=== PATIENT | male | born 1995 | race Two or more races ===

== ENCOUNTER 2017-07-14 15:16 | Emergency (ER) | payer SELFPAY ==
[~2017-07-14] VITALS: Ht 177.8 cm; Wt 79.8 kg
[2017-07-14] MEDS ORDERED: Albuterol ud Inhalation HHN ONE (15:45)
[2017-07-14] MEDS ORDERED: BROMFED DM COU118 ML PO (16:26)
[2017-07-14] MEDS ORDERED: FLONASE ALLERG9.9 ML NS (16:26)
[2017-07-14] MEDS ORDERED: PROVENTIL HFA6.7 G1 IH (16:26)
[2017-07-14] MEDS ORDERED: LORATADINE10 M2 PO (16:26)
--- NOTE | 2017-07-14 16:28 | Emergency Room Report ---
History of Present Illness General Chief Complaint: Flu Like Symptoms Source: Patient Present Illness HPI 21 y/o male c/o URI sxs x 3 days. Assoc sxs include nasal congestion, rhinorrhea , post nasal drip, bodyaches, chills, wheezing, chest congestion, and cough due to tickle in the throat. States they have not taken medications for sxs. States he is a smoker. Denies any current n/v/f/c/d, abd pain, back pain, neck pain, sore throat, photophobia, phonophobia, CP, SOB or headache. Allergies: Coded Allergies: No Known Allergies (Unverified , 07/14/17) Patient History Limited by: language barrier Past Medical History: see triage record Past Surgical History: none Pertinent Family History: none Social History: Reports: smoking Immunizations: UTD Reviewed Nursing Documentation: PMH: Agreed, PSxH: Agreed Nursing Documentation-PMH Past Medical History: No Stated History Review of Systems All Other Systems: negative except mentioned in HPI Physical Exam Vital Signs Date Time Temp Pulse Resp B/P (MAP) Pulse Ox O2 Delivery O2 Flow Rate FiO2 07/14/17 15:24 98.4 94 16 108/59 95 Room Air 07/14/17 15:54 21 Sp02 EP Interpretation: reviewed, normal General Appearance: no apparent distress, alert, GCS 15, non-toxic Head: normocephalic, atraumatic Eyes: bilateral eye normal inspection, bilateral eye PERRL ENT: hearing grossly normal, no angioedema, normal voice, TMs + canals normal, uvula midline, nasal congestion, other - moderate post nasal drip in posterior pharynx Neck: full range of motion, supple/symm/no masses Respiratory: chest non-tender, normal breath sounds, no respiratory distress, no retraction, no accessory muscle use, speaking full sentences, wheezing - scattered throughout Cardiovascular #1: regular rate, rhythm, no edema Musculoskeletal: back normal, gait/station normal, normal range of motion, non- tender Neurologic: alert, oriented x3, responsive, motor strength/tone normal, sensory intact, speech normal Skin: normal color, no rash, warm/dry, well hydrated Medical Decision Making PA Attestation Dr. Shankar my supervising physician with whom patient management has been discussed with. Diagnostic Impression: Primary Impression: Upper respiratory infection Qualified Codes: J06.9 - Acute upper respiratory infection, unspecified; B97.89 - Other viral agents as the cause of diseases classified elsewhere Additional Impression: Bronchitis ER Course Pt. presents to the ED c/o of cough and congestion Ddx considered but are not limited to bronchitis, pneumonia, viral upper respiratory tract infection Vital signs: are WNL, pt. is afebrile H&PE are most consistent with viral upper respiratory tract infection with bronchitis ORDERS: Albuterol ED INTERVENTIONS: CXR DISCHARGE: At this time pt. is stable for d/c to home. Will provide printed patient care instructions, and any necessary prescriptions. Care plan and follow up instructions have been discussed with the patient prior to discharge. Chest X-Ray Diagnostic Results Chest X-Ray Diagnostic Results : Chest X-Ray Ordered: Yes # of Views/Limited/Complete: 2 View Indication: Other - cough EP Interpretation: Yes DEANDRE Xray: Interpretation reviewed, by supervising MD, and agrees with findings. Interpretation: no consolidation, no effusion, no pneumothorax, no acute cardiopulmonary disease Electronically Signed by: Madonna Mason PA-C Last Vital Signs Date Time Temp Pulse Resp B/P (MAP) Pulse Ox O2 Delivery O2 Flow Rate FiO2 07/14/17 16:03 71 16 99 Room Air 21 07/14/17 15:24 98.4 108/59 Disposition: HOME, SELF-CARE Condition: Stable Scripts D-Methorphan Hb/P-Epd Hcl/Bpm (BROMFED DM COUGH SYRUP) 118 Ml Syrup 5 ML PO BEDTIME for 7 Days, #120 ML Prov: DANIEL,TAMEEM P.A. 07/14/17 Albuterol Sulfate (PROVENTIL HFA) 6.7 Gm Hfa.aer.ad 2 PUFFS IH EVERY 6 HOURS Y for For Cough for 10 Days, #1 UNIT Prov: SABRY,TAMEEM P.A. 07/14/17 Loratadine (LORATADINE) 10 Mg Tablet 10 MG PO DAILY for 14 Days, #14 TAB Prov: SABHERMILO,TAMEEM P.A. 07/14/17 Fluticasone Propionate (Flonase Allergy Relief) 9.9 Ml Alexis.susp 2 SPRAYS NS DAILY for 7 Days, #10 ML Prov: SABRY,TAMEEM P.A. 07/14/17 Patient Instructions: Acute Bronchitis, Upper Respiratory Infection, Adult Additional Instructions: Take medication as directed. Drink plenty of fluids which include Gatorade and water. Get plenty of rest. Avoid taking medications on an empty stomach. If you have cough avoid dairy and cold beverages. If you have a fever, headache or body aches please take [id number] tylenol/motrin/advil unless a prescription for these symptoms have been given. If your symptoms are worsening or you have shortness or breath, severe headaches or chest pain, please call 911 or go to the ER. MADONNA MASON Jul 14, 2017 16:28
[2017-07-14 16:45] VITALS: BP 105/66
[2017-07-14] MEDS ORDERED: Acetaminophen 500mg (ES) tab ORAL ONE (16:45)
--- NOTE | 2017-07-14 17:12 | Diagnostic Imaging Report ---
Indication: Cough Technique: XRAY Chest 2v Comparison: None Findings: Heart size and mediastinal contours are within normal limits. There is no focal consolidation, pneumothorax or pleural effusion. Osseous structures demonstrate no acute abnormality. Impression: No focal consolidation.
== END 2017-07-14 16:45 | disposition home or self-care (01) ==
LOC: EMR 16:44
DX: J06.9 Acute upper respiratory infection, unspecified (principal)
CPT/HCPCS: 71020; 94640; 94664; 99284